=== PATIENT | female | born 1985 | race Caucasian/White ===

== ENCOUNTER 2020-04-05 05:25 | Emergency (ER) | payer OTHER ==
[~2020-04-05] VITALS: Ht 172.7 cm; Wt 75.0 kg
[2020-04-05 05:28] VITALS: TEMP 97.8
[2020-04-05] MEDS ORDERED: PROZAC 10MG10 MG PO (05:44)
[2020-04-05] MEDS ORDERED: ADDERALL XR5 MG (05:45)
[2020-04-05 05:50] LABS: COLLECTION METHOD CLEAN CATCH
[2020-04-05 05:57] LABS: MUCOUS Present /lpf; PH 5 (5-8); URINE APPEARANCE Hazy; URINE BACTERIA Rare /hpf; URINE BILIRUBIN Negative (NEGATIVE); URINE BLOOD 1+ (NEGATIVE); URINE COLOR Yellow; URINE GLUCOSE Negative (NEGATIVE); URINE KETONE Negative (NEGATIVE); URINE LEUKOCYTE ESTERASE Trace (NEGATIVE); URINE NITRATE Negative (NEGATIVE); URINE PROTEIN(semi-quant) Negative (NEGATIVE); URINE RBC 0-2 /hpf; URINE UROBILINOGEN Negative (NEGATIVE)
[2020-04-05 06:25] LABS: BASO % 0.4 % (0.0-2.0); EOS # 0.3 (0.0-0.7); EOS % 3.2 % (0-4.0); GRAN # 7.5 (1.4-6.5); GRAN % 73.7 % (42.2-75.2); HEMOGLOBIN 12.7 g/dl (12.5-16.0); LYMPH # 1.6 (1.2-3.4); LYMPH % 15.2 % (20.0-51.0); MEAN CELL VOLUME 91 fl (80.0-100.0); MEAN CORPUSCULAR HEMOGLOBIN 30 pg (27.0-31.0); MEAN CORPUSCULAR HGB CONC 33 g/dl (33.0-37.0); MEAN PLATELET VOLUME 8.9 fl (7.4-10.4); MONO # 0.7 (0.1-0.6); MONO % 7.3 % (1.7-9.3); PLATELET COUNT 235 K/mm3 (130-400); RED BLOOD COUNT 4.18 M/mm3 (4.10-5.30); REDCELL DISTRIBUTION WIDTH-CV 12.3 % (11.5-14.5)
[2020-04-05 06:37] LABS: ALBUMIN 4.1 gm/dL (3.5-5.0); BILIRUBIN,TOTAL 0.5 mg/dL (0.0-1.0); CALCIUM 9.2 mg/dL (8.4-10.2); CREATININE, serum 0.74 (0.52-1.25); POTASSIUM 4.2 mmol/L (3.4-5.0); TOTAL PROTEIN 7.4 gm/dL (6.4-8.2)
[2020-04-05] MEDS ORDERED: NORCO 325 MG-51 TAB PO (08:08)
[2020-04-05 09:22] VITALS: BP 118/78; PULSE 85
== END 2020-04-05 09:05 | disposition home or self-care (01) ==
LOC: COL.ER 05:25
PROVIDERS: Emergency Medicine
DX: N83.201 Unspecified ovarian cyst, right side (principal)
CPT/HCPCS: J1885; J2405; J3010; J7030; Q9967

== ENCOUNTER 2022-06-19 01:22 | Observation (INO) | payer OTHER ==
[2022-06-19] VITALS (10 sets, daily range): BP systolic 97–117; BP diastolic 49–65; PULSE 52–92; TEMP 96.1–975
[~2022-06-19] VITALS: Ht 172.7 cm; Wt 76.7 kg
[~2022-06-19 01:22] MED LIST: ADDERALL XR5 MG; NORCO 325 MG-51 TAB PO; PROZAC 10MG10 MG PO
[2022-06-19 01:39] LABS: BASO # 0.1 K/mm3 (0.0-0.2); BASO % 0.4 % (0.0-2.0); EOS # 0.4 K/mm3 (0.0-0.7); EOS % 2.3 % (0.0-4.0); GRAN # 11.2 K/mm3 (1.4-6.5); HEMATOCRIT 37.3 % (37.0-47.0); HEMOGLOBIN 12.8 g/dl (12.5-16.0); LYMPH % 23.7 % (20.0-51.0); MEAN CELL VOLUME 88 fl (80.0-100.0); MEAN CORPUSCULAR HEMOGLOBIN 30 pg (27-31); MEAN CORPUSCULAR HGB CONC 34 g/dl (33.0-37.0); MEAN PLATELET VOLUME 8.8 fl (7.4-10.4); MONO % 6.2 % (1.7-9.3); PLATELET COUNT 323 K/mm3 (130-400); RED BLOOD COUNT 4.25 M/mm3 (4.10-5.30); REDCELL DISTRIBUTION WIDTH-CV 12.4 % (11.5-14.5)
[2022-06-19 01:58] LABS: ALBUMIN 3.9 gm/dL (3.5-5.0); BILIRUBIN,TOTAL 0.4 mg/dL (0.2-1.2); C-REACTIVE PROTEIN 0.11 mg/dL (0.00-0.50); CALCIUM 9.5 mg/dL (8.4-10.2); CREATININE, serum 0.77 mg/dL (0.57-1.11); POTASSIUM 3.8 mmol/L (3.5-4.5)
[2022-06-19 02:02] LABS: COLLECTION METHOD CLEAN CATCH
[2022-06-19 02:08] LABS: PH 5.5 (5.0-8.5); URINE APPEARANCE Clear (CLEAR/HAZY); URINE COLOR Yellow (YELLOW); URINE GLUCOSE Negative (NEGATIVE); URINE KETONE Negative (NEGATIVE); URINE PROTEIN(semi-quant) Negative (NEGATIVE)
[2022-06-19 02:09] LABS: URINE BLOOD Negative (NEGATIVE); URINE NITRATE Negative (NEGATIVE); URINE UROBILINOGEN 0.2 E.U/dL (0.2-1.0)
[2022-06-19] MEDS ORDERED: LEXAPRO 10MG10 MG PO (03:44)
[2022-06-19] MEDS ORDERED: PAXIL 10MG10 MG PO (03:44)
[2022-06-19] MEDS ORDERED: ADDERALL15 MG PO (03:44)
[2022-06-19] MEDS ORDERED: ADDERALL XR25 MG PO (03:44)
--- NOTE | 2022-06-19 03:50 | NUR ---
PT ARRIVES VIA CART FROM ED. IS ALERT AND ORIENTED X4. INT TO RAC, ANTIBIOTIC INFUSING WITHOUT PROBLEM.
--- NOTE | 2022-06-19 04:15 | NUR ---
PT REPORTS PAIN TO RLQ 05/25. MEDICATED WITH DILAUDID 0.5MG IVP AND ZOFRAN 4MG IVP AT THIS TIME. IVF INFUSING TO RAC WITHOUT REDNESS OR SWELLING. IS NPO FOR SURGERY TODAY.
[2022-06-19 04:58] LABS: MUCOUS Present (NOT PRESENT); URINE BACTERIA None Seen /hpf (NONE SEEN); URINE RBC 0-2 /hpf (0-2)
--- NOTE | 2022-06-19 09:34 | NUR ---
PT TO SURGERY PER BED WITH [employer].
--- NOTE | 2022-06-19 11:14 | NUR ---
PT TO ROOM 347 PER BED WITH REPORT FROM [facility] @[id number]. PT IS A/OX3, VSS, LUNGS CTA AFTER RT GAVE BREATHING TX IN PACU. BOWEL SOUNDS HYPO. LAP SITES X3 WITH BANDAIDS. PT DENIES NEEDS OR PAIN AT THIS TIME.
[2022-06-19] MEDS ORDERED: NORCO 325 MG-51 TAB PO (16:44)
--- NOTE | 2022-06-19 16:59 | NUR ---
DISCHARGE INSTRUCTIONS REVIEWED WITH PT. QUESTIONS ANSWERED. PT LEFT FLOOR PER WHEEL CHAIR.
== END 2022-06-19 17:09 | disposition home or self-care (01) ==
LOC: COL.ER 01:22 → SURG 02:54
PROVIDERS: Nurse Practitioner; ADMIT Surgery
DX: K35.33 Acute appendicitis with perforation, localized peritonitis, and gangrene, with abscess (principal)
CPT/HCPCS: G0378; J0330; J0690; J1100; J1170; J2405; J2543; J2704; J3010; J7030; Q9967